=== PATIENT | female | born 1995 | race Caucasian/White ===

== ENCOUNTER 2017-07-24 21:29 | Emergency (ER) | payer BC ==
[~2017-07-24] VITALS: Ht 177.8 cm; Wt 86.2 kg
[~2017-07-24 21:29] MED LIST: INSU100C14 SQ; ONDA4TAB PO; OXYC5TAB38 PO
[2017-07-24] MEDS ORDERED: birth control PO (21:34)
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
[2017-07-24] MEDS ORDERED: DIPHTH/TETANUS/ACEL. PERTUSSIS IM ONLY ONE (21:45)
[2017-07-24 22:10] VITALS: BP 128/72
== END 2017-07-24 22:10 | disposition home or self-care (01) ==
LOC: ER 21:32
DX: S00.212A Abrasion of left eyelid and periocular area, initial encounter (principal)
CPT/HCPCS: 90471; 90715; 99282